=== PATIENT | female | born 1970 | race Caucasian/White ===

== ENCOUNTER 2022-01-07 01:11 | Inpatient (IN) | payer MEDICAID ==
[~2022-01-07] VITALS: Ht 167.6 cm; Wt 94.8 kg
[2022-01-07 01:14] VITALS: BP_SYST 136
[2022-01-07] MEDS ORDERED: ALBUTEROL SULFATE 0.083% 2.5 MG/3 ML VIAL.NEB INH ONE (01:45)
[2022-01-07] MEDS ORDERED: KETOROLAC TROMETHAMINE 30 MG VIAL IVP ONE (02:45)
[2022-01-07] MEDS ORDERED: NACL 0.9% 1,000 ML IV ONE ×2 (02:45→05:00)
[2022-01-07] MEDS ORDERED: METOCLOPRAMIDE HCL 10 MG/2 ML VIAL IVP ONE (02:45)
[2022-01-07] MEDS ORDERED: METOCLOPRAMIDE HCL 10 MG/2 ML VIAL ONE (03:07)
[2022-01-07 03:08] LABS: BASOPHILS # (AUTO) 0.1 K/uL (0.0-0.2); BASOPHILS % (AUTO) 0.8 % (0.0-2.0); EOSINOPHILS # (AUTO) 0.1 K/uL (0.0-0.4); EOSINOPHILS % (AUTO) 0.8 % (0.0-4.0); HEMOGLOBIN 12.3 g/dL (12.0-16.0); LYMPHOCYTES # (AUTO) 3.4 K/uL (1.0-5.5); LYMPHOCYTES % (AUTO) 22.8 % (20.5-51.5); MEAN CORPUSCULAR HEMOGLOBIN 30 pg (27-31); MEAN CORPUSCULAR HGB CONC 34 % (32-36); MEAN CORPUSCULAR VOLUME 87 fL (79.0-98.0); MONOCYTES % (AUTO) 6.4 % (1.7-9.3); NEUTROPHILS # (AUTO) 10.4 K/uL (1.8-7.7); NEUTROPHILS % (AUTO) 69.2 % (40.0-70.0); PLATELET COUNT (AUTO) 292 K/uL (130-430); RED BLOOD CELL COUNT(AUTO) 4.16 MIL/uL (4.2-6.2); RED CELL DISTRIBUTION WIDTH 14.1 % (9.0-15.0)
[2022-01-07 03:20] LABS: ANION GAP 7 (5-15); CALCIUM 8.1 mg/dL (8.4-11.0); CHLORIDE 105 mmol/L (98-107); GLUCOSE 160 mg/dL (70-99); UREA NITROGEN, BLOOD 16 mg/dL (8-21)
[2022-01-07 03:32] LABS: ALANINE AMINOTRANSFERASE 19 U/L (12-78); ASPARTATE AMINOTRANSFERASE 13 U/L (10-37); PHENYTOIN (DILANTIN) < 0.5 ug/mL (10.0-20.0); TOTAL BILIRUBIN 0.3 mg/dL (0.0-1.0)
[2022-01-07 04:01] LABS: GFR AFRICAN AMERICAN 85 mL/min (>90)
[2022-01-07] MEDS ORDERED: PHENYTOIN SODIUM INJ 1,000 MG in NS 100 ML IV ONE (04:30)
[2022-01-07] MEDS ORDERED: AZITHROMYCIN 500 MG in NS 250 ML IV ONE (04:30)
[2022-01-07] MEDS ORDERED: PHENYTOIN SODIUM 250 MG/5 ML INJ. VIAL IV ONE ×2 (04:47→04:50)
[2022-01-07] MEDS ORDERED: CEFEPIME 1 GM in D5W 50 ML IV ONE (05:00)
[2022-01-07] MEDS ORDERED: methylPREDNISolone SOD SUCC/PF 62.5 MG/ML VIAL IVP ONE (05:15)
[2022-01-07] MEDS ORDERED: CEFEPIME 1 GM/VIAL (MAXIPIME) ONE (05:42)
[2022-01-07] MEDS ORDERED: AZITHROMYCIN 500 MG/VIAL (ZITHROMAX) IV ONE (06:26)
[2022-01-07] MEDS ORDERED: MUPIROCIN 2% TOPICAL OINTMENT 22 GM NS PRN (07:00)
[2022-01-07] MEDS ORDERED: MAGNESIUM SULFATE 50 ML IV PRN (07:00)
[2022-01-07] MEDS ORDERED: ONDANSETRON HCL 4 MG/2 ML VIAL IVP PRN (07:00)
[2022-01-07] MEDS ORDERED: ALBUTEROL SULFATE 0.083% 2.5 MG/3 ML VIAL.NEB INH PRN (07:00)
[2022-01-07] MEDS ORDERED: DOCUSATE SODIUM 100 MG CAPSULE PO PRN (07:00)
[2022-01-07] MEDS ORDERED: DEXTROSE 50% JECT 50 ML DISP.SYRIN IVP PRN (07:00)
[2022-01-07] MEDS ORDERED: POTASSIUM CHLORIDE 20 MEQ TAB.PRT.SR PO PRN (07:00)
[2022-01-07] MEDS ORDERED: ACETAMINOPHEN 325 MG TABLET PO PRN ×2 (07:00→09:00)
[2022-01-07] MEDS ORDERED: iohexoL 350 mgI/mL, 100 ML INFUS..BTL IV ONE (08:25)
[2022-01-07] MEDS ORDERED: APIX5TAB PO (08:38)
[2022-01-07] MEDS ORDERED: FURO40TA5 PO (08:38)
[2022-01-07] MEDS ORDERED: PHEN100C4 PO (08:38)
[2022-01-07] MEDS ORDERED: POTA-80 PO (08:38)
[2022-01-07] MEDS ORDERED: ASPI-524 (08:38)
[2022-01-07] MEDS: APIXABAN 2.5 MG TABLET PO SCH ×2 (09:00→21:18)
[2022-01-07 09:13] VITALS: BP_SYST 136
[2022-01-07] MEDS: PHENYTOIN 100 MG CAPSULE PO SCH ×3 (10:54→21:18)
[2022-01-07] MEDS: INSULIN LISPRO SLIDING SCALE 100 UNITS/ML, 3 ML VIAL (humaLOG) SUBCUT PRN (11:48)
[2022-01-07] MEDS: METHYLPREDNISOLONE SOD SUCC 40 MG/ML VIAL IVP SCH ×2 (16:01→21:14)
[2022-01-07] MEDS ORDERED: BENZONATATE 100 MG CAPSULE (TESSALON) PO ONE (17:00)
[2022-01-07] MEDS: KETOROLAC TROMETHAMINE 15 MG VIAL IVP SCH (17:44)
[2022-01-07] MEDS: guaiFENesin ER 600 MG TAB PO SCH (17:44)
[2022-01-07] MEDS ORDERED: NALOXONE HCL 0.4 MG/ML AMP (NARCAN) IVP PRN (19:30)
[2022-01-07 20:00] VITALS: BP_SYST 124
[2022-01-07] MEDS: ONDANSETRON HCL 4 MG/2 ML VIAL IM PRN (21:12)
[2022-01-07] MEDS: MORPHINE 2 MG/ML INJ. SYRINGE IVP PRN (21:13)
[2022-01-08] VITALS: BP_SYST 100; BP_SYST 118
[2022-01-08 04:00] VITALS: BP_SYST 139
[2022-01-08] MEDS: BENZONATATE 100 MG CAPSULE (TESSALON) PO SCH ×4 (06:31→21:46)
[2022-01-08] MEDS: ONDANSETRON HCL 4 MG/2 ML VIAL IM PRN (06:32)
[2022-01-08] MEDS: METHYLPREDNISOLONE SOD SUCC 40 MG/ML VIAL IVP SCH ×3 (06:33→21:38)
[2022-01-08] MEDS: MORPHINE 2 MG/ML INJ. SYRINGE IVP PRN (06:34)
[2022-01-08 06:40] LABS: BASOPHILS # (AUTO) 0.1 K/uL (0.0-0.2); BASOPHILS % (AUTO) 0.3 % (0.0-2.0); HEMATOCRIT 34.8 % (36-48); HEMOGLOBIN 11.9 g/dL (12.0-16.0); LYMPHOCYTES # (AUTO) 1.4 K/uL (1.0-5.5); LYMPHOCYTES % (AUTO) 7.2 % (20.5-51.5); MEAN CORPUSCULAR HEMOGLOBIN 30 pg (27-31); MEAN CORPUSCULAR HGB CONC 34 % (32-36); MEAN CORPUSCULAR VOLUME 88 fL (79.0-98.0); MONOCYTES # (AUTO) 0.6 K/uL (0.0-1.0); MONOCYTES % (AUTO) 2.9 % (1.7-9.3); NEUTROPHILS # (AUTO) 17.8 K/uL (1.8-7.7); NEUTROPHILS % (AUTO) 89.6 % (40.0-70.0); PLATELET COUNT (AUTO) 273 K/uL (130-430); RED BLOOD CELL COUNT(AUTO) 3.97 MIL/uL (4.2-6.2); RED CELL DISTRIBUTION WIDTH 14.3 % (9.0-15.0); WHITE BLOOD COUNT (AUTO) 19.9 K/uL (4.8-10.8)
[2022-01-08 07:49] LABS: CALCIUM 8.4 mg/dL (8.4-11.0); CREATININE 0.8 mg/dL (0.55-1.30)
[2022-01-08 08:00] VITALS: BP_SYST 122
[2022-01-08] MEDS: NICOTINE 14 MG/24 HR PATCH.TD24 TD SCH (09:16)
[2022-01-08] MEDS: guaiFENesin ER 600 MG TAB PO SCH ×2 (09:17→21:39)
[2022-01-08] MEDS: PHENYTOIN 100 MG CAPSULE PO SCH ×3 (09:17→21:38)
[2022-01-08] MEDS: KETOROLAC TROMETHAMINE 15 MG VIAL IVP SCH ×2 (09:18→21:40)
[2022-01-08] MEDS: APIXABAN 2.5 MG TABLET PO SCH ×2 (09:27→21:41)
[2022-01-08 12:00] VITALS: BP_SYST 114
[2022-01-08] MEDS: ALBUTEROL SULFATE 0.083% 2.5 MG/3 ML VIAL.NEB INH SCH ×2 (12:13→19:35)
[2022-01-08 16:00] VITALS: BP_SYST 124
[2022-01-08 20:00] VITALS: BP_SYST 131
[2022-01-08] MEDS: INSULIN LISPRO SLIDING SCALE 100 UNITS/ML, 3 ML VIAL (humaLOG) SUBCUT PRN (22:04)
[2022-01-09] VITALS: BP_SYST 148
[2022-01-09] MEDS: ALBUTEROL SULFATE 0.083% 2.5 MG/3 ML VIAL.NEB INH SCH ×4 (01:29→19:55)
[2022-01-09] MEDS: METHYLPREDNISOLONE SOD SUCC 40 MG/ML VIAL IVP SCH ×3 (06:37→22:13)
[2022-01-09 06:55] LABS: BASOPHILS # (AUTO) 0.1 K/uL (0.0-0.2); BASOPHILS % (AUTO) 0.5 % (0.0-2.0); HEMATOCRIT 33.7 % (36-48); HEMOGLOBIN 11.5 g/dL (12.0-16.0); LYMPHOCYTES # (AUTO) 1.5 K/uL (1.0-5.5); LYMPHOCYTES % (AUTO) 7.8 % (20.5-51.5); MEAN CORPUSCULAR HEMOGLOBIN 30 pg (27-31); MEAN CORPUSCULAR HGB CONC 34 % (32-36); MEAN CORPUSCULAR VOLUME 87 fL (79.0-98.0); MONOCYTES # (AUTO) 0.5 K/uL (0.0-1.0); MONOCYTES % (AUTO) 2.8 % (1.7-9.3); NEUTROPHILS % (AUTO) 88.9 % (40.0-70.0); PLATELET COUNT (AUTO) 278 K/uL (130-430); RED BLOOD CELL COUNT(AUTO) 3.87 MIL/uL (4.2-6.2); RED CELL DISTRIBUTION WIDTH 14.2 % (9.0-15.0); WHITE BLOOD COUNT (AUTO) 19.1 K/uL (4.8-10.8)
[2022-01-09 07:06] LABS: CALCIUM 7.9 mg/dL (8.4-11.0); CREATININE 0.84 mg/dL (0.55-1.30)
[2022-01-09 08:00] VITALS: BP_SYST 136
[2022-01-09] MEDS: guaiFENesin ER 600 MG TAB PO SCH ×2 (08:16→22:14)
[2022-01-09] MEDS: MORPHINE 2 MG/ML INJ. SYRINGE IVP PRN (08:17)
[2022-01-09] MEDS: KETOROLAC TROMETHAMINE 15 MG VIAL IVP SCH ×2 (08:17→22:13)
[2022-01-09] MEDS: APIXABAN 2.5 MG TABLET PO SCH ×2 (08:19→22:16)
[2022-01-09] MEDS: PHENYTOIN 100 MG CAPSULE PO SCH ×3 (08:38→22:14)
[2022-01-09] MEDS: BENZONATATE 100 MG CAPSULE (TESSALON) PO SCH ×3 (08:38→22:14)
[2022-01-09] MEDS: NICOTINE 14 MG/24 HR PATCH.TD24 TD SCH (10:06)
[2022-01-09] MEDS ORDERED: POLYETHYLENE GLYCOL 3350, 17 GM/ POWD.PACK PO ONE (11:30)
[2022-01-09 12:00] VITALS: BP_SYST 136
[2022-01-09 16:00] VITALS: BP_SYST 131
[2022-01-10] VITALS (8 sets, daily range): BP systolic 113–133
[2022-01-10] MEDS: ALBUTEROL SULFATE 0.083% 2.5 MG/3 ML VIAL.NEB INH SCH ×4 (01:11→19:22)
[2022-01-10] MEDS: ZOLPIDEM TARTRATE 5 MG TABLET PO PRN ×2 (02:05→20:21)
[2022-01-10] MEDS: guaiFENesin/DEXTROMETHORPHAN 10 ML UDC PO PRN (02:06)
[2022-01-10] MEDS: MORPHINE 2 MG/ML INJ. SYRINGE IVP PRN ×2 (02:07→15:19)
[2022-01-10 06:38] LABS: BASOPHILS # (AUTO) 0.1 K/uL (0.0-0.2); BASOPHILS % (AUTO) 0.4 % (0.0-2.0); EOSINOPHILS % (AUTO) 0.1 % (0.0-4.0); HEMATOCRIT 35.4 % (36-48); HEMOGLOBIN 11.9 g/dL (12.0-16.0); LYMPHOCYTES # (AUTO) 1.5 K/uL (1.0-5.5); LYMPHOCYTES % (AUTO) 10.2 % (20.5-51.5); MEAN CORPUSCULAR HEMOGLOBIN 30 pg (27-31); MEAN CORPUSCULAR HGB CONC 34 % (32-36); MEAN CORPUSCULAR VOLUME 88 fL (79.0-98.0); MONOCYTES # (AUTO) 0.6 K/uL (0.0-1.0); MONOCYTES % (AUTO) 3.8 % (1.7-9.3); NEUTROPHILS # (AUTO) 12.7 K/uL (1.8-7.7); NEUTROPHILS % (AUTO) 85.5 % (40.0-70.0); PLATELET COUNT (AUTO) 304 K/uL (130-430); RED BLOOD CELL COUNT(AUTO) 4.02 MIL/uL (4.2-6.2); RED CELL DISTRIBUTION WIDTH 14.2 % (9.0-15.0); WHITE BLOOD COUNT (AUTO) 14.8 K/uL (4.8-10.8)
[2022-01-10] MEDS: METHYLPREDNISOLONE SOD SUCC 40 MG/ML VIAL IVP SCH ×3 (06:40→20:12)
[2022-01-10 06:51] LABS: CALCIUM 8.3 mg/dL (8.4-11.0); CREATININE 0.78 mg/dL (0.55-1.30)
[2022-01-10] MEDS: BUDESONIDE 0.5 MG/2 ML AMPUL.NEB INH SCH ×2 (09:00→21:14)
[2022-01-10] MEDS ORDERED: SODIUM ZIRCONIUM CYCLOSILICATE 10 GM POWD.PACK PO ONE (09:00)
[2022-01-10] MEDS: POLYETHYLENE GLYCOL 3350, 17 GM/ POWD.PACK PO SCH (09:35)
[2022-01-10] MEDS: BENZONATATE 100 MG CAPSULE (TESSALON) PO SCH ×3 (09:35→20:12)
[2022-01-10] MEDS: NICOTINE 14 MG/24 HR PATCH.TD24 TD SCH (09:35)
[2022-01-10] MEDS: PHENYTOIN 100 MG CAPSULE PO SCH ×3 (09:36→20:12)
[2022-01-10] MEDS: APIXABAN 2.5 MG TABLET PO SCH ×2 (09:40→20:10)
[2022-01-10] MEDS: KETOROLAC TROMETHAMINE 15 MG VIAL IVP SCH ×2 (09:56→20:12)
[2022-01-10] MEDS: guaiFENesin ER 600 MG TAB PO SCH ×2 (10:55→20:12)
[2022-01-11] VITALS: BP_SYST 134
[2022-01-11] MEDS: ALBUTEROL SULFATE 0.083% 2.5 MG/3 ML VIAL.NEB INH SCH ×4 (01:38→21:10)
[2022-01-11 06:56] LABS: BASOPHILS # (AUTO) 0.1 K/uL (0.0-0.2); BASOPHILS % (AUTO) 0.4 % (0.0-2.0); EOSINOPHILS % (AUTO) 0.1 % (0.0-4.0); HEMATOCRIT 36.4 % (36-48); HEMOGLOBIN 12.1 g/dL (12.0-16.0); LYMPHOCYTES # (AUTO) 2.9 K/uL (1.0-5.5); LYMPHOCYTES % (AUTO) 20.1 % (20.5-51.5); MEAN CORPUSCULAR HEMOGLOBIN 29 pg (27-31); MEAN CORPUSCULAR HGB CONC 33 % (32-36); MEAN CORPUSCULAR VOLUME 88 fL (79.0-98.0); MONOCYTES # (AUTO) 0.9 K/uL (0.0-1.0); MONOCYTES % (AUTO) 5.9 % (1.7-9.3); NEUTROPHILS # (AUTO) 10.8 K/uL (1.8-7.7); NEUTROPHILS % (AUTO) 73.5 % (40.0-70.0); PLATELET COUNT (AUTO) 294 K/uL (130-430); RED BLOOD CELL COUNT(AUTO) 4.15 MIL/uL (4.2-6.2); RED CELL DISTRIBUTION WIDTH 14.1 % (9.0-15.0); WHITE BLOOD COUNT (AUTO) 14.7 K/uL (4.8-10.8)
[2022-01-11 07:23] LABS: CALCIUM 8.4 mg/dL (8.4-11.0); CREATININE 0.76 mg/dL (0.55-1.30)
[2022-01-11 08:00] VITALS: BP_SYST 143
[2022-01-11] MEDS: BUDESONIDE 0.5 MG/2 ML AMPUL.NEB INH SCH ×2 (08:04→21:11)
[2022-01-11] MEDS: POLYETHYLENE GLYCOL 3350, 17 GM/ POWD.PACK PO SCH (09:00)
[2022-01-11] MEDS: BENZONATATE 100 MG CAPSULE (TESSALON) PO SCH ×3 (09:11→20:11)
[2022-01-11] MEDS: PHENYTOIN 100 MG CAPSULE PO SCH ×3 (09:11→20:10)
[2022-01-11] MEDS: KETOROLAC TROMETHAMINE 15 MG VIAL IVP SCH ×2 (09:14→09:19)
[2022-01-11] MEDS: APIXABAN 2.5 MG TABLET PO SCH ×2 (09:21→20:14)
[2022-01-11] MEDS: NICOTINE 14 MG/24 HR PATCH.TD24 TD SCH (09:22)
[2022-01-11] MEDS: METHYLPREDNISOLONE SOD SUCC 40 MG/ML VIAL IVP SCH ×2 (09:23→20:11)
[2022-01-11] MEDS: guaiFENesin ER 600 MG TAB PO SCH ×2 (09:24→20:11)
[2022-01-11] MEDS ORDERED: FUROSEMIDE 20 MG/2 ML VIAL IVP ONE (09:30)
[2022-01-11 12:00] VITALS: BP_SYST 139
[2022-01-11] MEDS: INSULIN LISPRO SLIDING SCALE 100 UNITS/ML, 3 ML VIAL (humaLOG) SUBCUT PRN (13:10)
[2022-01-11] MEDS: MORPHINE 2 MG/ML INJ. SYRINGE IVP PRN (16:20)
[2022-01-11 16:55] VITALS: BP_SYST 140
[2022-01-11 22:04] VITALS: BP_SYST 126
[2022-01-11] MEDS: guaiFENesin/DEXTROMETHORPHAN 10 ML UDC PO PRN (23:11)
[2022-01-12 00:58] VITALS: BP_SYST 136
[2022-01-12] MEDS: ALBUTEROL SULFATE 0.083% 2.5 MG/3 ML VIAL.NEB INH SCH ×4 (01:00→21:22)
[2022-01-12] MEDS: MORPHINE 2 MG/ML INJ. SYRINGE IVP PRN ×4 (05:24→22:25)
[2022-01-12] MEDS: BUDESONIDE 0.5 MG/2 ML AMPUL.NEB INH SCH ×2 (07:14→23:21)
[2022-01-12 07:30] VITALS: BP_SYST 115
[2022-01-12 07:31] LABS: BASOPHILS % (AUTO) 0.3 % (0.0-2.0); EOSINOPHILS % (AUTO) 0.3 % (0.0-4.0); HEMATOCRIT 36.4 % (36-48); HEMOGLOBIN 12.4 g/dL (12.0-16.0); LYMPHOCYTES # (AUTO) 3.2 K/uL (1.0-5.5); LYMPHOCYTES % (AUTO) 21.6 % (20.5-51.5); MEAN CORPUSCULAR HEMOGLOBIN 30 pg (27-31); MEAN CORPUSCULAR HGB CONC 34 % (32-36); MEAN CORPUSCULAR VOLUME 87 fL (79.0-98.0); MONOCYTES # (AUTO) 0.9 K/uL (0.0-1.0); NEUTROPHILS # (AUTO) 10.5 K/uL (1.8-7.7); NEUTROPHILS % (AUTO) 71.8 % (40.0-70.0); PLATELET COUNT (AUTO) 279 K/uL (130-430); RED BLOOD CELL COUNT(AUTO) 4.17 MIL/uL (4.2-6.2); RED CELL DISTRIBUTION WIDTH 13.8 % (9.0-15.0); WHITE BLOOD COUNT (AUTO) 14.6 K/uL (4.8-10.8)
[2022-01-12 07:52] LABS: CALCIUM 8.2 mg/dL (8.4-11.0); CREATININE 0.68 mg/dL (0.55-1.30)
[2022-01-12] MEDS: METHYLPREDNISOLONE SOD SUCC 40 MG/ML VIAL IVP SCH ×2 (10:51→20:48)
[2022-01-12] MEDS: BENZONATATE 100 MG CAPSULE (TESSALON) PO SCH ×3 (10:51→20:56)
[2022-01-12] MEDS: PHENYTOIN 100 MG CAPSULE PO SCH ×3 (10:52→20:51)
[2022-01-12] MEDS: KETOROLAC TROMETHAMINE 15 MG VIAL IVP SCH (10:52)
[2022-01-12] MEDS: APIXABAN 2.5 MG TABLET PO SCH ×2 (10:55→20:50)
[2022-01-12] MEDS: NICOTINE 14 MG/24 HR PATCH.TD24 TD SCH (10:56)
[2022-01-12] MEDS: POLYETHYLENE GLYCOL 3350, 17 GM/ POWD.PACK PO SCH (10:57)
[2022-01-12] MEDS: guaiFENesin ER 600 MG TAB PO SCH ×2 (11:01→20:51)
[2022-01-12 12:05] VITALS: BP_SYST 136
[2022-01-12] MEDS: guaiFENesin/DEXTROMETHORPHAN 10 ML UDC PO PRN ×2 (12:12→18:46)
[2022-01-12 16:00] VITALS: BP_SYST 127
[2022-01-12 18:44] VITALS: BP_SYST 137
[2022-01-12 20:00] VITALS: BP_SYST 104
[2022-01-13] MEDS: MORPHINE 2 MG/ML INJ. SYRINGE IVP PRN (04:29)
[2022-01-13] MEDS: ALBUTEROL SULFATE 0.083% 2.5 MG/3 ML VIAL.NEB INH SCH ×2 (04:51→07:11)
[2022-01-13] MEDS: BUDESONIDE 0.5 MG/2 ML AMPUL.NEB INH SCH (07:11)
[2022-01-13 08:37] VITALS: BP_SYST 130
[2022-01-13] MEDS ORDERED: FLUT1DIS3 IH (08:42)
[2022-01-13] MEDS ORDERED: LEVO-62 PO (08:42)
[2022-01-13] MEDS ORDERED: PRED10TA PO (08:42)
[2022-01-13] MEDS: PHENYTOIN 100 MG CAPSULE PO SCH (10:29)
[2022-01-13] MEDS: BENZONATATE 100 MG CAPSULE (TESSALON) PO SCH (10:30)
[2022-01-13] MEDS: guaiFENesin ER 600 MG TAB PO SCH (10:30)
[2022-01-13] MEDS: APIXABAN 2.5 MG TABLET PO SCH (10:37)
[2022-01-13] MEDS: NICOTINE 14 MG/24 HR PATCH.TD24 TD SCH (10:48)
[2022-01-13] MEDS: POLYETHYLENE GLYCOL 3350, 17 GM/ POWD.PACK PO SCH (10:48)
[2022-01-13] MEDS: METHYLPREDNISOLONE SOD SUCC 40 MG/ML VIAL IVP SCH (10:54)
[2022-01-13 11:09] VITALS: BP_SYST 130
[2022-01-13 11:19] VITALS: BP_SYST 130
[2022-01-13 11:42] VITALS: BP_SYST 105
== END 2022-01-13 17:00 | disposition home or self-care (01) | DRG 139 ==
LOC: SED 01:11 → STU 04:52 → SMU 01-08 16:37
PROVIDERS: ADMIT Family Medicine; ATTEND Family Medicine
DX: J18.9 Pneumonia, unspecified organism (principal); J96.00 Acute respiratory failure, unspecified whether with hypoxia or hypercapnia; E44.1 Mild protein-calorie malnutrition; J44.1 Chronic obstructive pulmonary disease with (acute) exacerbation; G40.909 Epilepsy, unspecified, not intractable, without status epilepticus; Z20.822 Contact with and (suspected) exposure to COVID-19; F17.210 Nicotine dependence, cigarettes, uncomplicated; I10 Essential (primary) hypertension; E66.9 Obesity, unspecified; Z79.01 Long term (current) use of anticoagulants; Z79.82 Long term (current) use of aspirin; Z86.711 Personal history of pulmonary embolism; Z86.718 Personal history of other venous thrombosis and embolism; Z79.899 Other long term (current) drug therapy; Z68.33 Body mass index [BMI] 33.0-33.9, adult
CPT/HCPCS: 36415; 71045; 71275; 76376; 80048; 80053; 80185; 82962; 83605; 83735; 83880; 85025; 85379; 87040; 93005; 94640; 94760; 99285; G0378; J0456; J0692; J1030; J1165; J1885; J1940; J1956; J2270; J2405; J2765; J2930; J7030; J7050; J7613; J7626; Q9967

== ENCOUNTER 2022-09-07 22:30 | Emergency (ER) | payer MEDICAID ==
[~2022-09-07] VITALS: Ht 167.6 cm; Wt 81.6 kg
[~2022-09-07 22:30] MED LIST: APIX5TAB PO; ASPI-524; FLUT1DIS3 IH; FURO40TA5 PO; LEVO-62 PO; PHEN100C4 PO; POTA-80 PO; PRED10TA PO
[2022-09-07 22:45] VITALS: BP_SYST 140; PULSE 89; RESP 17; TEMP 97.7; O2SAT 100
--- NOTE | 2022-09-07 22:50 | NUR ---
S/P FALL, LEFT HAND PAIN AND LIMITED RANGE OF MOTION, 8/10 PAIN
--- NOTE | 2022-09-07 22:55 | NUR ---
PATIENT PLACED IN ED BED 3, REPORT GIVEN TO LELA PAN
[2022-09-07] MEDS ORDERED: IBUP-1969 PO (23:53)
[2022-09-07] MEDS ORDERED: FURO-149 PO (23:53)
[2022-09-07] MEDS ORDERED: APIX5TAB PO (23:53)
[2022-09-08] MEDS ORDERED: IBUPROFEN 600 MG TABLET PO ONE (00:30)
[2022-09-08 00:45] VITALS: TEMP 98.4
[2022-09-08 00:49] VITALS: BP_SYST 122; PULSE 84; RESP 18; O2SAT 96
--- NOTE | 2022-09-08 00:53 | NUR ---
Patient given written and verbal discharge instructions and verbalizes understanding. ER MD ARBOLEDA discussed with patient the results and treatment provided. Patient in stable condition. ID arm band removed. IV catheter removed intact and dressing applied, no active bleeding. Rx of ELIQUIS AND LASIX given. Patient educated on pain management and to follow up with PMD. Pain Scale . Opportunity for questions provided and answered. Medication side effect fact sheet provided.
== END 2022-09-08 00:49 | disposition home or self-care (01) ==
LOC: SED 22:30
DX: S69.92XA Unspecified injury of left wrist, hand and finger(s), initial encounter (principal); Z88.0 Allergy status to penicillin; Z88.1 Allergy status to other antibiotic agents; Z88.5 Allergy status to narcotic agent; Z88.8 Allergy status to other drugs, medicaments and biological substances; Z79.899 Other long term (current) drug therapy; W18.40XA Slipping, tripping and stumbling without falling, unspecified, initial encounter; Y93.89 Activity, other specified; Y92.89 Other specified places as the place of occurrence of the external cause; Y99.8 Other external cause status
CPT/HCPCS: 99283